=== PATIENT | male | born 1965 | race Caucasian/White ===

== ENCOUNTER 2019-07-11 05:54 | Outpatient (CLI) | payer BC ==
[2019-07-11 12:00] LABS: #Basophils 0.1 thou/uL (0.0-0.2); #Eosinphils 0.2 thou/uL (0.0-0.7); #Lymphocytes 2.3 thou/uL (1.20-3.40); #Monocytes 0.7 thou/uL (0.11-0.59); #Neutrophils 3.8 thou/uL (1.40-6.50); %Basophils 0.8 % (0.0-1.0); %Eosinophils 2.2 % (0.0-10.0); %Lymphocytes 33.4 % (21.0-51.0); %Monocytes 9.7 % (0.0-10.0); Hemoglobin 15.9 g/dL (14.0-18.0); Mean Corpuscular HGB CONC 33.2 g/dL (32.0-36.0); Mean Corpuscular Hemoglobin 29.9 pg (27.0-31.0); Mean Corpuscular Volume 90.2 fL (78.0-98.0); Mean Platelet Volume 7.5 fL (7.4-10.4); Platelet Count 265 thou/uL (130-400); RBC Distribution Width 11.9 % (11.5-14.5); Red Blood Cell (RBC) Count 5.31 mill/uL (4.70-6.10)
[2019-07-11 12:27] LABS: Anion Gap 13 mmol/L (10-20); BUN (Urea Nitrogen) 12 mg/dL (8.4-25.7); Calc. Creatinine Clearance 0 mL/min (70-130); Calcium 9.8 mg/dL (7.8-10.44); Carbon Dioxide 29 mmol/L (22-29); Chloride 99 mmol/L (98-107); Estimated GFR-MDRD 79; Glucose 87 mg/dL (70-105); Potassium 4.1 mmol/L (3.5-5.1); Sodium 137 mmol/L (136-145)
--- NOTE | 2019-07-11 16:29 | EKG ---
Test Reason : Blood Pressure : / mmHG Vent. Rate : 069 BPM Atrial Rate : 069 BPM P-R Int : 184 ms QRS Dur : 100 ms QT Int : 396 ms P-R-T Axes : 059 023 033 degrees QTc Int : 424 ms Normal sinus rhythm Normal ECG No previous ECGs available Confirmed by DR. David GILES ([id number]) on 07/11/2019 4:28:53 PM Referred By: IERO Confirmed By:DR. David GILES
== END 2019-07-11 05:55 | disposition home or self-care (01) ==
LOC: LABBT 05:54
PROVIDERS: ATTEND Orthopaedic Surgery
DX: Z01.818 Encounter for other preprocedural examination (principal); S46.212A Strain of muscle, fascia and tendon of other parts of biceps, left arm, initial encounter
CPT/HCPCS: 80048; 85025; 93005; 93010

== ENCOUNTER 2019-07-13 06:25 | Day surgery (SDC) | payer BC ==
[2019-07-11 10:28] VITALS: BMI 25.9
[2019-07-13] MEDS ORDERED: Lidocaine 2% Jelly 5 ML TUBE ONE (06:47)
[2019-07-13] MEDS ORDERED: Fentanyl 100 MCG/2 ML VIAL ONE ×2 (06:47→07:31)
[2019-07-13] MEDS ORDERED: Lidocaine 1% (PF) 30 ML VIAL ONE (07:31)
[2019-07-13] MEDS ORDERED: Midazolam HCl 2 mg/2 ml Vial ONE (07:31)
[2019-07-13] MEDS ORDERED: Zolpidem Tartrate 5 MG TAB PO PRN (08:15)
[2019-07-13] MEDS ORDERED: Ondansetron PF 4 MG/2 ML Vial IVP PRN (08:15)
[2019-07-13] MEDS ORDERED: HYDROcodone/Acetaminophen 5/325 mg Tablet PO PRN ×2 (08:15)
[2019-07-13] MEDS ORDERED: Ropivacaine 0.2% 550 ML 550 ML NERVE BLCK SCH (08:15)
[2019-07-13] MEDS ORDERED: Ketorolac Tromethamine 30 MG/ML VIAL IVP PRN (08:15)
[2019-07-13] MEDS ORDERED: traMADol HCl 50 MG TAB PO PRN ×2 (08:15)
[2019-07-13] MEDS ORDERED: Promethazine HCl 25 MG/ML VIAL IM PRN (08:15)
[2019-07-13] MEDS ORDERED: Rocuronium Bromide 10 MG/ML (10ML VIAL) ONE (09:53)
[2019-07-13] MEDS ORDERED: Ketorolac Tromethamine 30 MG/ML VIAL ONE (09:53)
[2019-07-13] MEDS ORDERED: PHENYLEPHRINE-NS 100 MCG/ML 10 ML SYRINGE ONE (09:53)
[2019-07-13] MEDS ORDERED: Glycopyrrolate 0.2 MG/ML 5 ML SYRINGE ONE (09:53)
[2019-07-13] MEDS ORDERED: Ondansetron PF 4 MG/2 ML Vial ONE (09:53)
[2019-07-13] MEDS ORDERED: ePHEDrine/0.9% NaCl/PF SYRINGE 50 mg/10 ml ONE (09:53)
[2019-07-13] MEDS ORDERED: Lidocaine 1% PF 5 ML VIAL ONE (09:53)
[2019-07-13] MEDS ORDERED: Ropivacaine 0.2% HCl/PF (40 MG/20 ML VIAL) ONE (09:53)
[2019-07-13] MEDS ORDERED: Dexamethasone 20 MG/5 ML VIAL ONE (09:53)
[2019-07-13] MEDS ORDERED: Ropivacaine 0.5% HCl/PF (150 MG/30 ML VIAL) ONE (09:53)
[2019-07-13] MEDS ORDERED: PROPOFOL 200 MG/20 ML VIAL ONE (09:53)
--- NOTE | 2019-07-13 11:23 | OP ---
DATE OF PROCEDURE: 07/13/2019 PREOPERATIVE DIAGNOSIS: Left shoulder, top of subscapularis tear with biceps instability and dislocation. POSTOPERATIVE DIAGNOSIS: Left shoulder, top of subscapularis tear with biceps instability and dislocation. PROCEDURES PERFORMED: Left open biceps tenodesis and open repair of the top of the subscapularis. SMUDGER: José Peña PA-C BLOOD LOSS: 50. COMPLICATIONS: None. ANESTHESIA: He had a general anesthetic as well as a preoperative block. IMPLANTS: We used a 7 x 23 Bio[employer]posite Bio-Tenodesis screw. DISPOSITION: He went to recovery room in stable condition. INDICATIONS: A 53-year-old male fell off a ladder and since that time, has been having problems in pain with the shoulder. An MRI scan found to have a subluxed biceps tendon out of the groove, a cranial tear in the subscapularis tendon and no other abnormality. At this time, he opted for surgery. DESCRIPTION OF PROCEDURE: After all appropriate consent forms were explained and signed, Mr. Nash was taken to the operative room and at this time was given a general anesthetic. Once the level of anesthesia was appropriate, he was placed in a modified beach chair position with all bony prominences well padded. Bird bag was inflated to hold in this position. The left shoulder and upper extremity were then prepped and draped in standard surgical fashion. The incision was made with 10 blade down through skin. Bovie was used to coagulate any brisk venous bleeding. At this time, we got down to the fascia. The cephalic vein was found. We took the vein laterally with the deltoid and the pect medially. Once we got down, we took the conjoined tendon off the underlying subscapularis and at this time, a self-retaining retractor was applied. We then were able to visualize our entire subscap as well as our biceps tendon. The transverse humeral ligament was opened up. Biceps tendon was pulled out and stitched. The biceps tendon had a lot of synovitic changes around it down the bicipital groove. This was removed. This did have a fair amount of venous bleeding and this was coagulated. Once we got hemostasis achieved, we then cut right over top of the biceps going in line with the interval to open up our cuff and gain access to our tendon going onto the superior labrum. The curved scissors were then taken right over top of the biceps and were used to cut the biceps prior to its insertion onto the labrum. Tendon was brought out into the wound. We then sutured our tendon, removed our intra-articular portion. We then took a pin, reamed with a 7.5 mm reamer to a depth of 25 and placed our 7 x 23 Bio[employer]posite tenodesis screw in standard fashion. Sutures were tied over top of this, so the screw could not back out. Once this was done, we then thoroughly irrigated and dried. We did debride with the scissors as well as a rongeur, the small tear of the subscapularis, but again majority of the tendon, 90% of it was intact. Therefore, we did resect the #1 Ethibond, placed multiple interrupted sutures to close our interval and repair our cuff. Once this was done, we then thoroughly irrigated and dried and once we were confident hemostasis was achieved, we removed our retractors, allowed our deltopectoral interval to close upon itself. A couple of Vicryl were used to loosely close the interval, followed by 2-0 Vicryl and kirstie on the skin. Sterile dressing was applied to the left shoulder. The patient was then awakened. He was taken to recovery room in stable condition. All counts were correct at the end of the case and he did receive preoperative IV antibiotics. Job ID: [id number]
== END 2019-07-13 11:12 | disposition home or self-care (01) ==
LOC: SDC 06:25
PROVIDERS: ATTEND Orthopaedic Surgery
PROC: 3E0T3BZ Introduction of Anesthetic Agent into Peripheral Nerves and Plexi, Percutaneous Approach (ICD-10-PCS; principal; 2019-07-13)
PROC: 0RHK04Z Insertion of Internal Fixation Device into Left Shoulder Joint, Open Approach (ICD-10-PCS; principal; 2019-07-13)
PROC: 0LQ20ZZ Repair Left Shoulder Tendon, Open Approach (ICD-10-PCS; principal; 2019-07-13)
PROC: 0LS20ZZ Reposition Left Shoulder Tendon, Open Approach (ICD-10-PCS; principal; 2019-07-13)
DX: S46.012A Strain of muscle(s) and tendon(s) of the rotator cuff of left shoulder, initial encounter (principal); S43.005A Unspecified dislocation of left shoulder joint, initial encounter; M25.312 Other instability, left shoulder; G89.18 Other acute postprocedural pain; W11.XXXA Fall on and from ladder, initial encounter
CPT/HCPCS: A4306; C1713; J0131; J0690; J1100; J1885; J2001; J2250; J2405; J2704; J2795; J3010; J3370